=== PATIENT | female | born 1930 | race Caucasian/White ===

== ENCOUNTER 2016-12-14 15:41 | Emergency (ER) | payer OTHER, MEDICARE ==
[~2016-12-14 15:41] MED LIST: LEVOXYL50 MCG PO; MULTI VITAMIN1 EAC2 PO; NORCO 5/325 TAB1 TAB PO; PREMARIN0.625 MG/T PO; PREMARIN0.9 MG; XANAX0.25 M1 PO; [UNRECOGNIZED DRUG - OTHER]
[2016-12-14 16:33] LABS: BASO % 1.1 % (0-2); BASO ABSOLUTE COUNT 0.1 tho/cmm (0.0-0.2); EOS % 5.6 % (0-7); EOSINOPHIL ABSOLUTE COUNT 0.4 tho/cmm (0.0-0.7); HCT-HEMATOCRIT 41.6 % (34.0-49.0); HGB-HEMOGLOBIN 14.1 gm/dl (12.0-15.5); IMMATURE GRANULOCYTES ABSOLUTE 0.02 tho/cmm (0-0.03); IMMATURE GRANULOCYTES PERCENT 0.3 % (0-0.3); LYMPH % 21.8 % (20-45); LYMPH ABSOLUTE COUNT 1.4 tho/cmm (0.8-4.5); MCH (MEAN CORPUSCULAR HGB) 31.7 pg (28.0-32.0); MCHC MEAN CORPUSCULAR HGB CONC 33.9 % (32.0-36.0); MCV (MEAN CELL VOLUME) 93.5 fl (82.0-96.0); MONO % 10.3 % (0-12); MONOCYTE ABSOLUTE COUNT 0.7 tho/cmm (0.0-1.2); NEUTROPHILS % 60.9 % (40-80); PLATELET COUNT 199 tho/cmm (150-450); RED BLOOD COUNT 4.45 mil/cmm (4.00-5.20); RED CELL DISTRIBUTION WIDTH 13.3 % (12.4-16.4); WHITE BLOOD COUNT 6.6 tho/cmm (4.0-10.0)
[2016-12-14 16:48] LABS: ANION GAP 10 mmol/L (0-20); BLOOD UREA NITROGEN 15 mg/dl (6-24); CALCIUM 8.8 mg/dl (8.5-10.5); CARBON DIOXIDE-VENOUS 30 mmol/L (22-32); CHLORIDE 109 mmol/l (96-110); CREATININE 0.94 mg/dl (0.50-1.10); GLUCOSE 87 mg/dL (70-110); SODIUM 144 mmol/L (135-145); eGFR VALUE FOR BLACK 65 mL/Min
[2016-12-14 16:56] LABS: POTASSIUM 4.5 mmol/L (3.7-5.1)
[2016-12-14] MEDS ORDERED: ULTRAM50 M1 PO (18:48)
== END 2016-12-14 19:20 | disposition other institution (70) ==
LOC: EDMED 15:41
PROVIDERS: Emergency Medicine
DX: S16.1XXA Strain of muscle, fascia and tendon at neck level, initial encounter (principal); S20.219A Contusion of unspecified front wall of thorax, initial encounter; S50.812A Abrasion of left forearm, initial encounter; I48.91 Unspecified atrial fibrillation; J44.9 Chronic obstructive pulmonary disease, unspecified; F41.9 Anxiety disorder, unspecified; F17.210 Nicotine dependence, cigarettes, uncomplicated; V49.40XA Driver injured in collision with unspecified motor vehicles in traffic accident, initial encounter